=== PATIENT | male | born 1945 | race Caucasian/White ===

== ENCOUNTER 2017-08-03 21:08 | Inpatient (IN) | payer OTHER ==
[~2017-08-03] VITALS: Ht 175.3 cm; Wt 119.0 kg
[~2017-08-03 21:08] MED LIST: FEOSOL325 MG PO; MULTIPLE VITAM1 EAC1 PO; NAPROSYN500 MG PO; PRILOSEC20 MG PO
[2017-08-04 05:56] VITALS: BP 130/62
[2017-08-04 11:08] VITALS: BP 132/70
[2017-08-04 15:44] VITALS: BP 130/72
[2017-08-04 19:08] VITALS: BP 138/64
[2017-08-04 23:03] VITALS: BP 128/67
[2017-08-05 03:32] VITALS: BP 136/66
[2017-08-05 07:01] LABS: CHLORIDE 108 MEQ/L (99-109); CREATININE 1.2 MG/DL (0.6-1.3); GFR ESTIMATE (CALCULATED) > 59 mL/min/ (58.99-99999); GLUCOSE 113 mg/dL (70-99); POTASSIUM 4.3 MEQ/L (3.7-5.4); SODIUM 141 MEQ/L (136-147); UREA NITROGEN (BUN) 18 mg/dL (9-23)
[2017-08-05 08:19] VITALS: BP 129/72
[2017-08-05] MEDS ORDERED: OXYCODONE HCL5 MG PO (09:23)
[2017-08-05] MEDS ORDERED: CELECOXIB200 MG PO (09:23)
[2017-08-05] MEDS ORDERED: ELIQUIS2.5 MG PO (09:23)
[2017-08-05 11:30] VITALS: BP 127/69
[2017-08-05 15:44] VITALS: BP 145/79
[2017-08-05 23:23] VITALS: BP 148/76
[2017-08-06 07:36] VITALS: BP 141/83
[2017-08-06 15:12] VITALS: BP 132/77
[2017-08-07 00:16] VITALS: BP 136/69
[2017-08-07 07:45] VITALS: BP 123/69
== END 2017-08-07 19:29 | DRG 470 ==
LOC: ENRESERV 21:08 → 3EAST 08-04 05:05 → 2SOUTH 08-04 05:05 → ENRESERV 08-04 09:38 → 2SOUTH 08-04 10:58 → 3EAST 08-04 11:04 → 2SOUTH 08-04 13:35 → 3EAST 08-07 19:29
PROVIDERS: Orthopaedic Surgery
PROC: 0SRD0J9 Replacement of Left Knee Joint with Synthetic Substitute, Cemented, Open Approach (ICD-10-PCS; principal; 2017-08-04)
DX: M17.12 Unilateral primary osteoarthritis, left knee (principal); K21.9 Gastro-esophageal reflux disease without esophagitis; Z60.2 Problems related to living alone; E66.9 Obesity, unspecified; Z68.38 Body mass index [BMI] 38.0-38.9, adult; Z75.1 Person awaiting admission to adequate facility elsewhere
CPT/HCPCS: 71045; 80048; 82948; 97530 GO; C1713; J0131; J0690; J1885; J2250; J2795; J7050; J7120; L1820; S0020